=== PATIENT | male | born 1980 | race Two or more races ===

== ENCOUNTER 2021-05-10 11:44 | Emergency (ER) | payer SELFPAY ==
[~2021-05-10] VITALS: Ht 180.3 cm; Wt 99.8 kg
--- NOTE | 2021-05-10 12:10 | NUR ---
The patient bibs for c/o right hand pain, pin/swelling s/p punched a refrigerator 2 days ago. The patient rates pain 5/10. Will continue to monitor the patient.
[2021-05-10] MEDS ORDERED: HYDROCODONE/APAP 5/325MG TABLET PO ONE (12:30)
[2021-05-10] MEDS ORDERED: IBUPROFEN 600 MG TABLET PO ONE (12:30)
[2021-05-10] MEDS ORDERED: HYDROCODONE/APAP 5/325MG TABLET ONE (12:32)
[2021-05-10] MEDS ORDERED: IBUPROFEN 600 MG TABLET ONE (12:32)
[2021-05-10] MEDS ORDERED: HYDR-4675 PO (12:48)
[2021-05-10] MEDS ORDERED: IBUP-1957 PO (12:48)
--- NOTE | 2021-05-10 13:08 | NUR ---
PT BEING PLACED IN SPLINT
--- NOTE | 2021-05-10 13:25 | NUR ---
Patient discharged to home in stable condition. Written and verbal after care instructions given. Patient verbalizes understanding of instruction.
[2021-05-10 13:26] VITALS: BP 151/87
[2021-05-10] MEDS ORDERED: HYDR-4209 PO (17:11)
== END 2021-05-10 13:27 | disposition home or self-care (01) ==
LOC: ER 11:48
DX: S62.314A Displaced fracture of base of fourth metacarpal bone, right hand, initial encounter for closed fracture (principal); S62.316A Displaced fracture of base of fifth metacarpal bone, right hand, initial encounter for closed fracture; F17.200 Nicotine dependence, unspecified, uncomplicated; X58.XXXA Exposure to other specified factors, initial encounter; Y93.89 Activity, other specified; Y92.89 Other specified places as the place of occurrence of the external cause; Y99.8 Other external cause status
CPT/HCPCS: 73130-TC